=== PATIENT | female | born 1980 | race Caucasian/White ===

== ENCOUNTER 2020-12-22 20:35 | Emergency (ER) | payer MEDICAID ==
[~2020-12-22] VITALS: Ht 160 cm; Wt 74.8 kg
[2020-12-22] MEDS ORDERED: ZYRTEC10 MG PO (22:05)
--- OUTSIDE RECORDS SUMMARY | 2020-12-22 23:20 | XMS ---
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 E.DRosibel V[facility] (12 MO.) [facility] [address] [place] [address] TOTAL 3 NOTE: Visits indicate total known visits. ED/C VISIT TRACKING (12 MO.) 12/22/2020 20:[address] [facility] [place] TYPE: Emergency COMPLAINT: - FALL 12/22/2020 17:45 [facility] TYPE: Emergency DIAGNOSES: - knee puncture wound 08/31/2020 09:23 [facility] TYPE: Emergency DIAGNOSES: - Chest Pain - Dizziness - Headache (Adult - New Onset Or New Symptoms) - COVID-19 - SEARS/Chest Pain/dizziness INPATIENT VISIT TRACKING (12 MO.) No inpatient visits to display in this time frame [id number]
[2020-12-22] MEDS ORDERED: HYDROCODON-ACE1 EA10 PO (23:31)
[2020-12-22] MEDS ORDERED: OXYCODONE HCL5 MG PO (23:33)
== END 2020-12-23 01:24 | disposition home or self-care (01) ==
LOC: ED 20:35
DX: S80.211A Abrasion, right knee, initial encounter (principal); F17.200 Nicotine dependence, unspecified, uncomplicated; Z91.030 Bee allergy status; Z88.8 Allergy status to other drugs, medicaments and biological substances; Z88.5 Allergy status to narcotic agent; W18.30XA Fall on same level, unspecified, initial encounter
CPT/HCPCS: 73562; 99283-25